=== PATIENT | female | born 1965 | race Caucasian/White ===

== ENCOUNTER 2018-04-29 19:35 | Emergency (ER) | payer OTHER ==
[~2018-04-29] VITALS: Ht 172.7 cm; Wt 131.5 kg
[~2018-04-29 19:35] MED LIST: AMLO10TA6 PO; BUPR-51 PO; FLUO-120 PO; HYDR25TA4 PO; LOSA50TA21 PO
[2018-04-29 19:48] VITALS: BP 161/85
--- NOTE | 2018-04-29 19:50 | NUR ---
PT A/OX4. NEG ACUTE DISTRESS. NEG SOB. VSS. SAFETY MEASURES IN PLACE.
== END 2018-04-29 20:35 | disposition home or self-care (01) ==
LOC: ER 19:39
DX: G51.0 Bell's palsy (principal); I10 Essential (primary) hypertension; E11.9 Type 2 diabetes mellitus without complications; Z98.890 Other specified postprocedural states; Z91.411 Personal history of adult psychological abuse; Z86.59 Personal history of other mental and behavioral disorders; Z87.39 Personal history of other diseases of the musculoskeletal system and connective tissue
CPT/HCPCS: 99283; A4606; Z7610